=== PATIENT | female | born 1995 | race Caucasian/White ===

== ENCOUNTER 2018-09-10 08:23 | Emergency (ER) | payer OTHER ==
[~2018-09-10] VITALS: Ht 157.5 cm; Wt 68.9 kg
[2018-09-10] MEDS ORDERED: ONDANSETRON PF 4 MG/2 ML VIAL. ONE (08:57)
[2018-09-10] MEDS ORDERED: ONDANSETRON PF 4 MG/2 ML VIAL. IV ONE (09:00)
[2018-09-10] MEDS ORDERED: FAMOTIDINE 20 MG/2 ML VIAL IVP ONE (09:00)
[2018-09-10] MEDS ORDERED: IV NORMAL SALINE 1000ML BAG 1,000 ML IV ONE (09:00)
[2018-09-10 09:19] LABS: CREATININE 0.9 mg/dL (0.6-1.0); GFR 77.6; POTASSIUM 3.9 mmol/L (3.5-5.1)
[2018-09-10 09:25] LABS: ALBUMIN/GLOBULIN RATIO 1.2 (1.0-1.7); TOTAL BILIRUBIN 0.8 mg/dL (0.2-1.0); TOTAL PROTEIN 7.4 g/dL (6.4-8.2)
[2018-09-10] MEDS ORDERED: CONTRAST GIVEN. MC PRN (09:45)
[2018-09-10] MEDS ORDERED: IOHEXOL 300 MG/ML 100ML VIAL. IV ONE (09:45)
[2018-09-10] MEDS ORDERED: PROCHLORPERAZINE 10 MG/2 ML VIAL. IV ONE (10:00)
[2018-09-10 10:15] LABS: BASO % 1 % (0-3); EOS % 0 % (0-3); HEMATOCRIT 41.1 % (36.0-47.0); HEMOGLOBIN 13.9 g/dL (12.0-15.5); LYMPH # 1.1 x10^3/uL (1.0-4.8); LYMPH % 11 % (24-48); MEAN CORPUSCULAR HEMOGLOBIN 31 pg (25-35); MEAN CORPUSCULAR HGB CONC 34 g/dL (31-37); MEAN CORPUSCULAR VOLUME 91 fL (79-100); MONO # 0.4 x10^3/uL (0.0-1.1); MONO % 4 % (0-9); NEUT # 8.1 x10^3uL (1.8-7.7); NEUT % 84 % (31-73); RED BLOOD COUNT 4.52 x10^6/uL (3.50-5.40); RED CELL DISTRIBUTION WIDTH 14.7 % (11.5-14.5); WHITE BLOOD COUNT 9.6 x10^3/uL (4.0-11.0)
[2018-09-10 10:30] LABS: BILIRUBIN,URINE NEGATIVE (NEG); CLARITY,URINE CLEAR; COLOR,URINE YELLOW; NITRITE,URINE NEGATIVE (NEG); PROTEIN,URINE NEGATIVE (NEG-TRACE); UROBILINOGEN,URINE 0.2 mg/dL (0.2 mg/dL)
[2018-09-10 10:37] LABS: PLATELET COUNT 123 x10^3/uL (140-400)
[2018-09-10 10:37] LABS: BARBITURATES NEG (NEG); BENZODIAZEPINES NEG (NEG); CANNABINOIDS POS (NEG); COCAINE NEG (NEG); METHADONE NEG (NEG); OPIATES NEG (NEG); PHENCYCLIDINE NEG (NEG)
[2018-09-10 10:38] LABS: AMPHETAMINE/METHAMPHETAMINE NEG (NEG)
[2018-09-10 10:45] LABS: BACTERIA,URINE FEW /HPF (0-FEW); SQUAMOUS EPITHELIAL CELL,UR FEW /LPF
[2018-09-10 10:50] LABS: INFLUENZA A PATIENT NEGATIVE (NEGATIVE); INFLUENZA B PATIENT NEGATIVE (NEGATIVE)
--- NOTE | 2018-09-10 11:20 | RAD ---
PQRS Compliance Statement: One or more of the following individualized dose reduction techniques were utilized for this examination: 1. Automated exposure control 2. Adjustment of the mA and/or kV according to patient size 3. Use of iterative reconstruction technique CT ABD PELV W/ IV CONTRST ONLY Clinical Indication: ABD NVD X 2300 Comparison: None. Technique: Helical CT imaging of the abdomen and pelvis is performed after 75 cc of Omnipaque 300 IV contrast. Oral contrast not given. Findings: Lung bases are clear. Cardiac size normal. There is mild periportal edema, correlate to whether there has been recent IV hydration. Liver is homogeneous. The gallbladder, spleen, pancreas, adrenal glands, abdominal aorta, and kidneys are normal. Stomach unremarkable. No dilated small bowel. There is no colon wall thickening. The transverse colon is decompressed, limiting evaluation. Appendix or appendix remnant is identified and is normal caliber. No abdominal adenopathy or free fluid. Urinary bladder is not well distended, otherwise normal. Uterus unremarkable. Mild pelvic free fluid, may be physiologic. Bones unremarkable. IMPRESSION: 1. No acute abdominal or pelvic abnormality. 2. Mild pelvic free fluid, probably physiologic. Electronically signed by: Ashish Fabian MD (09/10/2018 11:15 AM) [id number]
--- NOTE | 2018-09-10 12:16 | PHYS DOC ---
Past Medical History Past Medical History: Other Additional Past Medical Histor: PCOS Past Surgical History: Other Additional Past Surgical Histo: left knee Alcohol Use: None Drug Use: Marijuana Social History Narrative: daily use Adult General Chief Complaint Chief Complaint: NAUSEA/VOMITING/DIARRHA HPI HPI Patient is a 23 year old female with no significant medical history who presents to the ED today complaining of nausea vomiting that began last night at 11 PM. She states symptoms began at work. She works at a [employer], she states several employees have similar symptoms. Patient denies any hematemesis or melena. Patient reports generalized abdominal pain. Review of Systems Review of Systems Constitutional: Denies fever or chills [] Eyes: Denies change in visual acuity, redness, or eye pain [] HENT: Denies nasal congestion or sore throat [] Respiratory: Denies cough or shortness of breath [] Cardiovascular: No additional information not addressed in HPI [] GI: Reports nausea, vomiting, abdominal, denies bloody stools or diarrhea [] : Denies dysuria or hematuria [] Musculoskeletal: Denies back pain or joint pain [] Integument: Denies rash or skin lesions [] Neurologic: Denies headache, focal weakness or sensory changes [] All other systems were reviewed and found to be within normal limits, except as documented in this note. Current Medications Current Medications Current Medications Medications (Trade) Dose Ordered Sig/[place] Start Time Stop Time Status Last Admin Dose Admin Famotidine (Pepcid Vial) 20 mg 1X ONCE 09/10/18 09:00 09/10/18 09:01 DC 09/10/18 09:30 20 MG Info (CONTRAST GIVEN -- Rx MONITORING) 1 each PRN DAILY PRN 09/10/18 09:45 09/12/18 09:44 Iohexol (Omnipaque 300 Mg/ml) 75 ml 1X ONCE 09/10/18 09:45 09/10/18 09:46 DC 09/10/18 10:40 75 ML Ondansetron HCl (Zofran) 4 mg STK-MED ONCE 09/10/18 08:57 09/10/18 08:58 DC Prochlorperazine Edisylate (Compazine) 10 mg 1X ONCE 09/10/18 10:00 09/10/18 10:01 DC 09/10/18 10:19 10 MG Sodium Chloride 1,000 ml @ 1,000 mls/hr 1X ONCE 09/10/18 09:00 09/10/18 09:59 DC 09/10/18 09:00 1,000 MLS/HR Allergies Allergies Allergies Coded Allergies Type Severity Reaction Last Updated Verified banana Allergy Intermediate mouth itching 09/10/18 Yes latex Allergy Intermediate rash 09/10/18 Yes Physical Exam Physical Exam Constitutional: Well developed, well nourished, no acute distress, non-toxic appearance. [] HENT: Normocephalic, atraumatic, bilateral external ears normal, oropharynx moist, no oral exudates, nose normal. [] Eyes: PERRLA, EOMI, conjunctiva normal, no discharge. [] Neck: Normal range of motion, no tenderness, supple, no stridor. [] Cardiovascular:Heart rate regular rhythm, no murmur [] Lungs & Thorax: Bilateral breath sounds clear to auscultation [] Abdomen: Bowel sounds normal, soft, diffuse tenderness throughout the abdomen, no point tenderness to the right upper quadrant or right lower quadrant no guarding, no rebound pain or tenderness, no masses, no pulsatile masses. [] Skin: Warm, dry, no erythema, no rash. [] Back: No tenderness, no CVA tenderness. [] Extremities: No tenderness, no cyanosis, no clubbing, ROM intact, no edema. [] Neurologic: Alert and oriented X 3, normal motor function, normal sensory function, no focal deficits noted. [] Psychologic: Affect normal, judgement normal, mood normal. [] Current Patient Data Vital Signs Vital Signs Date Time Temp Pulse Resp B/P (MAP) Pulse Ox O2 Delivery O2 Flow Rate FiO2 09/10/18 11:20 50 18 117/68 (84) 100 Room Air 09/10/18 08:37 98.1 98.1 Lab Values Laboratory Tests Test 09/10/18 08:50 09/10/18 09:45 09/10/18 10:08 09/10/18 10:15 Sodium Level 139 mmol/L (136-145) Potassium Level 3.9 mmol/L (3.5-5.1) Chloride Level 101 mmol/L (98-107) Carbon Dioxide Level 22 mmol/L (21-32) Anion Gap 16 (6-14) H Blood Urea Nitrogen 9 mg/dL (7-20) Creatinine 0.9 mg/dL (0.6-1.0) Estimated GFR (Cockcroft-Gault) 77.6 BUN/Creatinine Ratio 10 (6-20) Glucose Level 111 mg/dL (70-99) H Calcium Level 9.0 mg/dL (8.5-10.1) Total Bilirubin 0.8 mg/dL (0.2-1.0) Aspartate Amino Transferase (AST) 24 U/L (15-37) Alanine Aminotransferase (ALT) 34 U/L (14-59) Alkaline Phosphatase 53 U/L (46-116) Total Protein 7.4 g/dL (6.4-8.2) Albumin 4.0 g/dL (3.4-5.0) Albumin/Globulin Ratio 1.2 (1.0-1.7) Lipase 57 U/L (73-393) L Ethyl Alcohol Level < 10 mg/dL (0-10) White Blood Count 9.6 x10^3/uL (4.0-11.0) Red Blood Count 4.52 x10^6/uL (3.50-5.40) Hemoglobin 13.9 g/dL (12.0-15.5) Hematocrit 41.1 % (36.0-47.0) Mean Corpuscular Volume 91 fL (79-100) Mean Corpuscular Hemoglobin 31 pg (25-35) Mean Corpuscular Hemoglobin Concent 34 g/dL (31-37) Red Cell Distribution Width 14.7 % (11.5-14.5) H Platelet Count 123 x10^3/uL (140-400) L Neutrophils (%) (Auto) 84 % (31-73) H Lymphocytes (%) (Auto) 11 % (24-48) L Monocytes (%) (Auto) 4 % (0-9) Eosinophils (%) (Auto) 0 % (0-3) Basophils (%) (Auto) 1 % (0-3) Neutrophils # (Auto) 8.1 x10^3uL (1.8-7.7) H Lymphocytes # (Auto) 1.1 x10^3/uL (1.0-4.8) Monocytes # (Auto) 0.4 x10^3/uL (0.0-1.1) Eosinophils # (Auto) 0.0 x10^3/uL (0.0-0.7) Basophils # (Auto) 0.0 x10^3/uL (0.0-0.2) Influenza Type A Antigen Negative (NEGATIVE) Influenza Type B Antigen Negative (NEGATIVE) Urine Collection Type Unknown Urine Color Yellow Urine Clarity Clear Urine pH 8.0 Urine Specific [place] 1.020 Urine Protein Negative mg/dL (NEG-TRACE) Urine Glucose (UA) Negative mg/dL (NEG) Urine Ketones (Stick) >=80 mg/dL (NEG) Urine Blood Trace (NEG) Urine Nitrite Negative (NEG) Urine Bilirubin Negative (NEG) Urine Urobilinogen Dipstick 0.2 mg/dL (0.2 mg/dL) Urine Leukocyte Esterase Negative (NEG) Urine RBC 1-2 /HPF (0-2) Urine WBC 1-4 /HPF (0-4) Urine Squamous Epithelial Cells Few /LPF Urine Bacteria Few /HPF (0-FEW) Urine Mucus Slight /LPF Urine Opiates Screen Neg (NEG) Urine Methadone Screen Neg (NEG) Urine Barbiturates Neg (NEG) Urine Phencyclidine Screen Neg (NEG) Urine Amphetamine/Methamphetamine Neg (NEG) Urine Benzodiazepines Screen Neg (NEG) Urine Cocaine Screen Neg (NEG) Urine Cannabinoids Screen Pos (NEG) Urine Ethyl Alcohol Neg (NEG) Test 09/10/18 10:19 POC Urine HCG, Qualitative Hcg negative (Negative) Laboratory Tests 09/10/18 09:45 Laboratory Tests 09/10/18 08:50 EKG EKG [] Radiology/Procedures Radiology/Procedures []PROCEDURE: CT ABD PELV W/ IV CONTRST ONLY PQRS Compliance Statement: One or more of the following individualized dose reduction techniques were utilized for this examination: 1. Automated exposure control 2. Adjustment of the mA and/or kV according to patient size 3. Use of iterative reconstruction technique CT ABD PELV W/ IV CONTRST ONLY Clinical Indication: ABD NVD X 2300 Comparison: None. Technique: Helical CT imaging of the abdomen and pelvis is performed after 75 cc of Omnipaque 300 IV contrast. Oral contrast not given. Findings: Lung bases are clear. Cardiac size normal. There is mild periportal edema, correlate to whether there has been recent IV hydration. Liver is homogeneous. The gallbladder, spleen, pancreas, adrenal glands, abdominal aorta, and kidneys are normal. Stomach unremarkable. No dilated small bowel. There is no colon wall thickening. The transverse colon is decompressed, limiting evaluation. Appendix or appendix remnant is identified and is normal caliber. No abdominal adenopathy or free fluid. Urinary bladder is not well distended, otherwise normal. Uterus unremarkable. Mild pelvic free fluid, may be physiologic. Bones unremarkable. IMPRESSION: 1. No acute abdominal or pelvic abnormality. 2. Mild pelvic free fluid, probably physiologic. Electronically signed by: Ashish Yee MD (09/10/2018 11:15 AM) [id number] DICTATED and SIGNED BY: ASHISH YEE MD DATE: 09/10/18 1115 Course & Med Decision Making Course & Med Decision Making Pertinent Labs and Imaging studies reviewed. (See chart for details) This is a 23-year-old female patient presenting to the ED today with nausea vomiting, symptoms began yesterday, also complaining of abdominal pain, denies diarrhea. CBC with normal WBC, platelet count 123, CMP with no acute findings, CT of the abdomen and pelvic is negative for any acute findings. Urine analysis is negative for infection. Noted for ketones greater than 80, negative influenza. Noted for marijuana use. Patient was given IV fluids, Zofran and Compazine. Symptoms have subsided. Discharged to home with Zofran. Instructed to push fluids. Maintain good hand hygiene. Follow-up with her own doctor for thrombocytopenia in the course of this week or next week. Dragon Disclaimer Dragon Disclaimer This electronic medical record was generated, in whole or in part, using a voice recognition dictation system. Departure Departure Impression: Primary Impression: Thrombocytopenia Additional Impressions: Marijuana use Nausea and vomiting Disposition: HOME, SELF-CARE Condition: STABLE Referrals: UNKNOWN PCP NAME (PCP) Follow-up with your doctor in one week Patient Instructions: Thrombocytopenia, [id number] Additional Instructions: You were evaluated in the emergency room for nausea, vomiting and abdominal pain , your symptoms are likely viral. Your platelet count was slightly low at 123. We highly recommend you follow-up with your own doctor for this. Push fluids. Maintain good hand hygiene. Take the nausea medicine as needed come back to the ED at any point symptoms worsen. Scripts Ondansetron (ONDANSETRON ODT) 4 Mg Tab.rapdis 1 TAB PO PRN Q6-8HRS, #16 TAB Prov: MARILYN VELEZ [employer] 09/10/18 Problem Qualifiers Additional Impressions: Nausea and vomiting Vomiting type: unspecified Vomiting Intractability: intractable Qualified Codes: R11.2 - Nausea with vomiting, unspecified MARILYN VELEZ APRN Sep 10, 2018 12:16
[2018-09-10] MEDS ORDERED: ONDA4TAB12 PO (12:20)
[2018-09-10 13:18] VITALS: BP 99/54
== END 2018-09-10 13:24 | disposition home or self-care (01) ==
LOC: ER 08:23
DX: R11.2 Nausea with vomiting, unspecified (principal); F12.90 Cannabis use, unspecified, uncomplicated; D69.6 Thrombocytopenia, unspecified; Z91.040 Latex allergy status; Z91.018 Allergy to other foods
CPT/HCPCS: 36415; 74177; 80053; 80307; 81001; 81025; 83690; 85025; 87804; 96361; 96374; 96375; 99284; G0480; J0780; J3490; J7030; Q9967; J2405